=== PATIENT | male | born 1965 | race Caucasian/White ===

== ENCOUNTER → 2018-07-07 | Outpatient (CLI) | payer MEDICAID ==
[2018-07-07 08:23] LABS: Basophils # (A) 0.1 k/uL (0-0.2); Basophils % (A) 1 %; Eosinophils # (A) 0.2 k/uL (0-0.7); Eosinophils % (A) 3 %; HCT 46.2 % (39.0-53.0); HGB 15.4 gm/dL (13.0-17.5); Lymphocytes # (A) 1.4 k/uL (1.0-4.8); Lymphocytes % (A) 22 %; MCH 29.5 pg (25.0-35.0); MCHC 33.3 g/dL (31.0-37.0); MCV 88.4 fL (80.0-100.0); Mean Platelet Volume 6.7; Monocytes # (A) 0.6 k/uL (0-1.0); Monocytes % (A) 9 %; Neutrophils % (A) 62 %; Platelet Count 262 k/uL (150-450); RBC 5.23 m/uL (4.30-5.90); RDW 13.3 % (11.5-15.5); WBC 6.4 k/uL (3.8-10.6)
[2018-07-07 08:59] LABS: ALT 24 U/L (21-72); AST 23 U/L (17-59); Alkaline Phosphatase 92 U/L (38-126); Anion Gap 8 mmol/L; Blood Urea Nitrogen 17 mg/dL (9-20); Calcium 9.4 mg/dL (8.4-10.2); Carbon Dioxide 28 mmol/L (22-30); Chloride 103 mmol/L (98-107); Glucose 107 mg/dL (74-99); Potassium 4.4 mmol/L (3.5-5.1); Sodium 139 mmol/L (137-145); Total Bilirubin 0.6 mg/dL (0.2-1.3); Total Protein 6.6 g/dL (6.3-8.2)
[2018-07-07 09:11] LABS: T4, Free (Free Thyroxine) 0.73 ng/dL (0.78-2.19)
[2018-07-07 16:09] LABS: Cholesterol 205 mg/dL (<200); HDL Cholesterol 40 mg/dL (40-60); LDL Cholesterol,Calculated 132 mg/dL (0-99); Triglycerides 164 mg/dL (<150)
== END | disposition home or self-care (01) ==
LOC: LABWHC1 08:00
PROVIDERS: ATTEND Internal Medicine
DX: E78.5 Hyperlipidemia, unspecified (principal); I10 Essential (primary) hypertension
CPT/HCPCS: 36415; 80053; 80061; 84439; 84443; 85025

== ENCOUNTER → 2018-10-15 | Outpatient (CLI) | payer MEDICAID ==
--- NOTE | 2018-10-16 08:36 | XR ---
Left ankle HISTORY: Swelling 3 views of the left ankle Soft tissue swelling is noted. Small ossific densities noted at the tibiotalar joint at the level of the medial malleolus. Bone fragment measures approximately 1 mm. There is no dislocation. Alignment i s maintained. Bone mineralization is normal. There is a plantar calcaneal spur. Vascular calcificatio ns noted incidentally. Some degenerative change at the tibiotalar joint and intertarsal joints, tarso metatarsal joints. IMPRESSION: Punctate ossific density medial to ankle mortise may be due to small chip fracture or loo se body. There are osteoarthritic changes. Soft tissue swelling, correlate to exclude cellulitis. Fabricio ntar calcaneal spur.
== END | disposition home or self-care (01) ==
LOC: RADXRMAIN 16:47
PROVIDERS: ATTEND Internal Medicine
DX: M19.072 Primary osteoarthritis, left ankle and foot (principal); M77.32 Calcaneal spur, left foot; M79.89 Other specified soft tissue disorders

== ENCOUNTER → 2020-02-26 | Outpatient (CLI) | payer MEDICAID ==
--- NOTE | 2020-02-26 11:59 | XR ---
EXAMINATION TYPE: XR ankle complete LT DATE OF EXAM: 02/26/2020 COMPARISON: 10/15/2018 HISTORY: 54-year-old male left ankle pain TECHNIQUE: 3 views FINDINGS: Circumferential soft tissue swelling at the ankle. Moderate-sized plantar calcaneal spur. Ankle morti se is congruent. Slight distancing at the distal tibiofibular overlap on the mortise view. Otherwise, no acute fracture, subluxation, dislocation. IMPRESSION: 1. Circumferential soft tissue swelling. Slight distancing of the distal tibiofibular overlap on the mortise view. Findings may be seen in the setting of a high ankle sprain. 2. Otherwise, no acute osseous abnormality seen. Moderate-sized plantar calcaneal spur.
== END | disposition home or self-care (01) ==
LOC: RADXRMAIN 11:04
PROVIDERS: ATTEND Family Medicine
DX: M79.89 Other specified soft tissue disorders (principal)

== ENCOUNTER 2021-09-19 09:42 | Day surgery (SDC) | payer MEDICAID ==
[2021-09-18 08:51] VITALS: BMI 24.0
[~2021-09-19 09:42] MED LIST: LACTATED RINGERS 1,000 ML IV SCH; LIDOCAINE 1% (10MG/ML) FOR IV START INTRADERMA PRN
[2021-09-19 10:32] VITALS: TEMP 97
[2021-09-19] MEDS ORDERED: PROPOFOL 10 MG/ML 20 ML VIAL IV ONE (10:58)
--- NOTE | 2021-09-19 11:00 | P.GSHP ---
History of Present Illness H&P Date: 09/19/21 Chief Complaint: Colon cancer screening Patient here today for colonoscopy. He has not had one before. No bowel complaints. No family history of colon cancer. Past Medical History Past Medical History: Hyperlipidemia, Hypertension History of Any Multi-Drug Resistant Organisms: None Reported Past Surgical History: No Surgical Hx Reported Past Anesthesia/Blood Transfusion Reactions: No Reported Reaction Additional Past Anesthesia/Blood Transfusion Reaction / Comment(s): only has had anesthesia at dental office Smoking Status: Never smoker - Past Family History Mother Family Medical History: Cancer Medications and Allergies Home Medications Medication Instructions Recorded Confirmed Type Multivitamins, Thera [Multivitamin 1 tab PO DAILY 09/18/21 09/18/21 History (formulary)] Simvastatin [Zocor] 20 mg PO HS 09/18/21 09/18/21 History amLODIPine [Norvasc] 5 mg PO QAM 09/18/21 09/18/21 History Allergies Allergy/AdvReac Type Severity Reaction Status Date / Time chocolate flavor Allergy Rash/Hives Verified 09/18/21 08:28 Penicillins Allergy Rash/Hives Verified 09/18/21 08:28 Surgical - Exam Vital Signs Temp Pulse Resp BP Pulse Ox 97 F L 88 20 155/78 99 09/19/21 10:20 09/19/21 10:20 09/19/21 10:20 09/19/21 10:20 09/19/21 10:20 Physical exam: General: Well-developed, well-nourished HEENT: Normocephalic, sclerae nonicteric Abdomen: Nontender, nondistended Extremities: No edema Neuro: Alert and oriented Assessment and Plan (1) Colon cancer screening Narrative/Plan: Will proceed with colonoscopy at this time. Current Visit: Yes Status: Acute Code(s): Z12.11 - ENCOUNTER FOR SCREENING FOR MALIGNANT NEOPLASM OF COLON SNOMED Code(s): 754087828
--- NOTE | 2021-09-19 11:14 | P.PCN ---
Date of Procedure: 09/19/21 Procedure(s) Performed: PREOPERATIVE DIAGNOSIS: Colon cancer screening POSTOPERATIVE DIAGNOSIS: Normal exam with suboptimal prep PROCEDURE: Colonoscopy ANESTHESIA: MAC SURGEON: Dat Unger M.D. SPECIMENS: None ENDOSCOPIC PROCEDURE: The patient was placed on the endoscopy table in the left decubitus position. The Olympus colonoscope was inserted into the anus and passed under direct visualization to the base of the cecum. The appendiceal orifice was visualized. From that point the scope was slowly withdrawn inspecting all surfaces carefully. There were no neoplastic inflammatory or polypoid lesions throughout the cecum, ascending, transverse, descending, sigmoid and rectum. There was no visible diverticulosis noted. The patient's prep overall was somewhat suboptimal with some fluid pockets containing particulate matter that we could not evacuate. I would estimate 80-90% of the mucosal surfaces were visualized. Digital rectal examination was normal. The patient was taken to the recovery room in stable condition per anesthesia guidelines. RECOMMENDATIONS: Resume diet. Follow-up colonoscopy 5-10 years.
[2021-09-19 11:37] VITALS: BP 119/82; PULSE 76; RESP 16
== END 2021-09-19 12:07 | disposition home or self-care (01) ==
LOC: ORWHC2ENDO 09:42
PROVIDERS: ATTEND Surgery
DX: Z12.11 Encounter for screening for malignant neoplasm of colon (principal); E78.5 Hyperlipidemia, unspecified; I10 Essential (primary) hypertension; Z97.2 Presence of dental prosthetic device (complete) (partial); Z80.9 Family history of malignant neoplasm, unspecified; Z79.899 Other long term (current) drug therapy; Z88.0 Allergy status to penicillin; Z91.018 Allergy to other foods
CPT/HCPCS: J2704; G0121

== ENCOUNTER → 2023-10-14 | Outpatient (CLI) | payer MEDICAID ==
--- NOTE | 2023-10-14 14:57 | MR ---
EXAMINATION TYPE: MR shoulder RT wo con DATE OF EXAM: 10/14/2023 COMPARISON: Outside radiograph 10/04/2023 HISTORY: 58-year-old male M25.511, Right shoulder pain since 2022 due to pulling injury. TECHNIQUE: Multiplanar, multisequence imaging of the right shoulder is performed without contrast. FINDINGS: There is prominent inhomogeneous signal at the junction of the intracapsular and extracapsular portio ns of the long head biceps tendon. The extracapsular portion remains appropriately situated along the bicipital groove. Heterogeneous signal within the subscapularis tendon with a small intrasubstance tear of the middle t hird fibers at the footprint measuring 6 x 4 mm. The majority of the tendon remains intact. There is moderate degenerative change at the AC joint with joint space narrowing, capsule hypertrophy , joint effusion, and marginal spurring. There is some encroachment onto the underlying myotendinous junction of the supraspinatus by the inferior spurring. There is bursal sided fraying of both supraspinatus and infraspinatus tendons and a full-thickness te ar of the anterior to mid cervical tenderness tendon measuring 1.4 cm long and up to 2.1 cm AP with t ear extending into the posterior fibers of the supraspinatus. Infraspinatus tendon remains intact. No atrophy of the rotator cuff musculature. There is a [id number] effusion within the subacromial/subdeltoid bursa. While the glenohumeral joint is intact, there is abnormal signal within the posterior labrum with sug gestion of a tiny 3 mm or labral cyst. No significant joint effusion. No Hill-Sachs deformity or os acromiale. No suspicious bone marrow replacement. Patchy red marrow can be seen with anemia, obesity, smoking, chronic disease. IMPRESSION: 1. Diffuse rotator cuff tendinosis. There is a full-thickness tear of the anterior supinator tendon w ith tear extending into the posterior fibers measuring 1.4 cm long by 2.1 cm AP. No rotator cuff musc le atrophy. 2. Additional small intrasubstance tear at the footprint of the middle third fibers of the subscapula ris tendon measuring 6 x 4 mm. The majority of the subscapularis tendon remains intact. 3. Moderate focal tendinosis at the junction of the intracapsular and extracapsular portions of the l parminder head biceps tendon. 4. Moderate AC joint OA with subacromial impingement. Bursal fluid could be reactive to the impingeme nt or to the underlying full-thickness tear. 5. Small posterior labral tear with a tiny 3 mm paralabral cyst.
== END | disposition home or self-care (01) ==
LOC: RADMRIMAIN 14:02
PROVIDERS: ATTEND Orthopaedic Surgery
DX: S46.011A Strain of muscle(s) and tendon(s) of the rotator cuff of right shoulder, initial encounter (principal); M19.011 Primary osteoarthritis, right shoulder; M67.813 Other specified disorders of tendon, right shoulder

== ENCOUNTER → 2023-11-01 | Outpatient (CLI) | payer MEDICAID ==
[2023-11-01 16:08] LABS: Basophils # (A) 0.03 X 10*3/uL (0.00-0.10); Basophils % (A) 0.5 %; Eosinophils # (A) 0.06 X 10*3/uL (0.04-0.35); Eosinophils % (A) 1.1 %; HCT 46.1 % (39.6-50.0); HGB 15.1 g/dL (13.0-17.0); Lymphocytes % (A) 17.5 %; MCH 30.1 pg (27.0-32.0); MCHC 32.8 g/dL (32.0-37.0); MCV 91.8 FL (80.0-97.0); Mean Platelet Volume 9.6 FL (9.5-12.2); Monocytes # (A) 0.57 X 10*3/uL (0.20-1.00); NRBC Per 100 WBC 0 X 10*3/uL (0.00-0.01); Neutrophils # (A) 4.03 X 10*3/uL (1.80-7.70); Neutrophils % (A) 70.5 %; Platelet Count 274 X 10*3/uL (140-440); RBC 5.02 X 10*6/uL (4.40-5.60); RDW 13.5 % (11.5-14.5); WBC 5.71 X 10*3/uL (4.50-10.00)
[2023-11-01 16:45] LABS: Anion Gap 10.3 mmol/L (4.00-12.00); Carbon Dioxide 26.7 mmol/L (21.6-31.8); Potassium 4.4 mmol/L (3.5-5.5)
== END | disposition home or self-care (01) ==
LOC: LABPAT 08:11
PROVIDERS: ATTEND Orthopaedic Surgery
DX: Z01.812 Encounter for preprocedural laboratory examination (principal); M75.41 Impingement syndrome of right shoulder
CPT/HCPCS: 80051; 85025; 93005

== ENCOUNTER 2023-11-21 05:38 | Day surgery (SDC) | payer MEDICAID ==
--- NOTE | 2023-11-20 21:31 | HP ---
HISTORY AND PHYSICAL DATE OF SURGERY: 11/21/2023. HISTORY OF PRESENT ILLNESS: Babatunde Bautista is a 58-year-old patient seen with progressive right shoulder pain. We discussed options regarding treatment. He elected to proceed with right shoulder arthroscopy. Consent was obtained. PAST MEDICAL HISTORY: Hyperlipidemia, hypertension. PAST SURGICAL HISTORY: Noncontributory. DAILY MEDICATIONS: 1. Amlodipine. 2. Simvastatin. 3. Motrin. 4. Tylenol. ALLERGIES: Penicillin. SOCIAL HISTORY: Denies tobacco use. PHYSICAL EVALUATION OF THE RIGHT SHOULDER: Flexion is 140 degrees, abduction is 130 degrees. External rotation is 40 degrees with some weakness. He has tenderness along the anterolateral acromion and rotator cuff insertion site. Impingement sign is positive at 100 degrees. Cross-body adduction sign is positive. Drop-arm sign is positive. Distal neurovascular exam is intact. IMAGING STUDIES: Right shoulder radiographs revealed a type 2 acromion, moderate acromioclavicular joint osteoarthritis, and cystic changes of the tuberosity. Right shoulder MRI revealed a rotator cuff tendon tear, bicipital tendinitis, acromioclavicular joint osteoarthritis, and labral tear. IMPRESSION: 1. Right shoulder impingement with rotator cuff tear. 2. Right shoulder acromioclavicular joint osteoarthritis. 3. Right shoulder bicipital tendinitis. 4. Right shoulder labral tear. PLAN: Right shoulder arthroscopy with subacromial decompression, arthroscopic rotator cuff repair, biceps tenodesis, and Vero procedure. MMODL / IJN: [id number] /
[2023-11-21 06:19] VITALS: RESP 16
[2023-11-21 06:23] LABS: Glucose,Whole Blood 108 mg/dL (70-110)
[2023-11-21] MEDS: LACTATED RINGERS 1,000 ML IV SCH (06:24)
[2023-11-21] MEDS: DEXAMETHASONE SOD PHOSPHATE 4 MG/ML 1 ML VIAL IV ONE (06:32)
[2023-11-21] MEDS: ONDANSETRON 4 MG/2 ML VIAL IVP ONE (06:32)
[2023-11-21] MEDS: MIDAZOLAM 2 MG/2 ML VIAL IVP ONE (06:53)
[2023-11-21] MEDS: fentaNYL (PF) 50 MCG/1 ML VIAL IVP ONE (06:53)
[2023-11-21] MEDS ORDERED: HYDROmorphone 0.5 MG/0.5 ML SYRINGE IVP PRN (07:00)
[2023-11-21] MEDS ORDERED: ROPIVACAINE 5 MG/ML 30 ML VIAL ONE (07:26)
[2023-11-21] MEDS ORDERED: PROPOFOL 10 MG/ML 20 ML VIAL IV ONE (07:26)
[2023-11-21] MEDS ORDERED: MIDAZOLAM 2 MG/2 ML VIAL ONE (07:26)
[2023-11-21] MEDS ORDERED: LIDOCAINE 1% INJ 10MG/ML (20 ML MDV) ONE (07:26)
[2023-11-21] MEDS ORDERED: fentaNYL (PF) 50 MCG/ML 2 ML AMP ONE (07:26)
[2023-11-21] MEDS ORDERED: SUCCINYLCHOLINE CHLORIDE 200 MG/10 ML VIAL IV ONE (07:26)
[2023-11-21] MEDS ORDERED: ePHEDrine 50 MG/ML 1 ML VIAL ONE (07:26)
[2023-11-21] MEDS ORDERED: GLYCOPYRROLATE 0.2 MG/ML 2 ML VIAL ONE (07:26)
--- NOTE | 2023-11-21 09:27 | P.ANPRN ---
Procedure Note - Anesthesia - Nerve Block Performed Right Interscalene Single Time Out Performed: Yes ([id number]) Date of Procedure: 11/21/23 Procedure Start Time: 06:52 Procedure Stop Time: 06:56 Location of Patient: PreOp Indication: Acute Post-Operative Pain, Requested by Surgeon Specifically requested for management of pain by DrChanel: Momo Jacques Sedation Type: Sedate with meaningful contact maintained Preparation: Sterile Prep Position: Supine Catheter: None Needle Types: Pajunk Needle Gauge: 21 Ultrasound used to visualize needle placement: Yes Ultrasound used to observe medication spread: Yes Injectate: 0.5% Ropivacaine (see comment for volume) (30cc) Blood Aspirated: No Pain Paresthesia on Injection Noted: No Resistance on Injection: Normal Image Stored and Saved: Yes Events: Uneventful and Well Tolerated
--- NOTE | 2023-11-21 09:34 | P.OP ---
Date of Procedure: 11/21/23 Preoperative Diagnosis: Right shoulder impingement Postoperative Diagnosis: 1. Right shoulder rotator cuff tear 2. Right shoulder bicipital tendinitis 3. Right shoulder impingement 4. Right shoulder acromioclavicular joint osteoarthritis 5. Right shoulder superficial labral tear Procedure(s) Performed: 1. Right shoulder arthroscopic rotator cuff repair 2. Right shoulder arthroscopic biceps tenodesis 3. Right shoulder arthroscopic subacromial decompression 4. Right shoulder arthroscopic Vero procedure 5. Right shoulder arthroscopic debridement labral tear Implants: 3Arthrex 4.75 swivel lock anchors 2Arthrex 5.5 swivel lock anchors Anesthesia: GETA, regional (Interscalene block) Surgeon: Momo Jacques Library Specialist #1: Gomez Mitchell Estimated Blood Loss (ml): 10 Pathology: none sent Condition: stable Disposition: PACU Indications for Procedure: 58-year-old gentleman seen with progressive right shoulder pain. After having treatment options discussed, he elected to proceed with arthroscopy. Operative Findings: See description of procedure Description of Procedure: Patient underwent an interscalene block by department of anesthesia. The patien t was then taken to the operative suite. The patient underwent a general anesthetic by the department of anesthesia. The patient was placed into a lateral position and secured. There was appropriate padding of the bony prominence. Right shoulder was then prepped and draped in normal sterile orthopedic fashion. We placed the extremity in 10 pounds of longitudinal traction. A posterior incision was now made for a posterior working portal site. The trocar and cannula were inserted into the glenohumeral joint. Arthroscopy was initiated. Spinal needle was now inserted anteriorly, to ascertain the anterior working portal site. An incision was now made in that area, a trocar was inserted followed by a probe. There was hyperemia and partial tearing long head biceps tendon. There was a superior labral tear. There were grade I chondromalacia changes of the glenohumeral joint without tears. I debrided out the superficial labral tear. I decided to proceed with an arthroscopic biceps tenodesis. A cannula was inserted through the anterior portal site. I now passed a loop and tack stitch to the biceps tendon. I released the biceps tendon from the superior labrum. With the assistance of Scott ZEPEDA I punched a hole at the area of the interval for insertion of an anchor. The suture limb was passed through the eyelet of an Arthrex 4.75 swivel lock anchor. I placed that into our preplanned hole and held in position while Scott ZEPEDA tensioned the suture and deployed the anchor with good fixation noted. The residual suture limb was clipped. We had a stable appearing biceps tenodesis. Instruments removed from the glenohumeral joint. Utilizing the posterior working portal site, the trocar and cannula were inserted into the subacromial space. Arthroscopy initiated. I made an incision 2 fingerbreadths lateral to the acromion. I introduced my trocar followed by my ArthroCare ablator. I now began ablating thick subacromial bursal tissue, which exposed the undersurface of the anterior acromion. There was diminished subacromial space. There was a very prominent anterior acromion. A motorized bur was introduced and a subacromial decompression was performed. I also excised some osteophytes off the inferior aspect of the distal clavicle. The AC joint was visualized and noted to be fairly arthritic. The motorized bur was introduced in the anterior portal site and a Vero procedure was performed without difficulty, removing 8 mm off the distal clavicle decompressing the AC joint nicely. I turned my attention to the rotator cuff. There was a 3 cm rotator cuff tear. I debrided the margins getting down to stable tendon tissue. I introduced my motorized bur and abraded the footprint area, getting some petechial bleeding. I now made an accessory portal site off the lateral aspect of the acromion. I punched [] holes medial for medial row fixation with the assistance of Scott ZEPEDA carefully tapping the punch with a mallet as I held the punch and the camera. I now introduced both anchors into the pre-punched holes and Scott ZEPEDA tapped them with the mallet as I held anchors and the camera. Scott ZEPEDA now screwed the anchors in place a while I held the anchor guide and camera. All 8 limbs of suture were now passed through good bites of rotator cuff tendon. I now punched 2 holes for lateral row fixation again I held the punch and camera while Scott ZEPEDA used a mallet to tap in the punch. We now passed sutures through both anchors and individually I introduced the anchors into the pre-punch holes I held the anchor guide in po sition with one hand holding the camera with the other hand while Scott ZEPEDA tensioned the sutures and screwed in the anchors one at a time. All residual suture limbs were now clipped. We had good compression of the tendon along the entire footprint. Instruments now removed from the portal sites. All portal sites were approximated with nylon suture. Sterile dressings were applied followed by a shoulder immobilizer. Gomez ZEPEDA assisted in this complex case. The patient was awakened, transferred to a bed, and taken to recovery in stable condition.
[2023-11-21 10:04] VITALS: TEMP 96.8
[2023-11-21 10:58] LABS: Glucose,Whole Blood 100 mg/dL (70-110)
[2023-11-21 11:07] VITALS: BP 126/75; PULSE 66
== END 2023-11-21 11:20 | disposition home or self-care (01) ==
LOC: OR 05:38
PROVIDERS: ATTEND Orthopaedic Surgery
DX: M75.41 Impingement syndrome of right shoulder (principal); M75.101 Unspecified rotator cuff tear or rupture of right shoulder, not specified as traumatic; M75.21 Bicipital tendinitis, right shoulder; S43.431A Superior glenoid labrum lesion of right shoulder, initial encounter; G89.18 Other acute postprocedural pain; I10 Essential (primary) hypertension; E78.5 Hyperlipidemia, unspecified; X58.XXXA Exposure to other specified factors, initial encounter; Z88.0 Allergy status to penicillin; Z79.899 Other long term (current) drug therapy
CPT/HCPCS: 64415; 29827; 29828; 29826; C1713 ×3; J2250; J0330; J1100; J0690; J2405; J2001; J3010 ×2; J2795; J2704